=== PATIENT | female | born 1980 | race Caucasian/White ===

== ENCOUNTER → 2018-06-09 | Outpatient (CLI) | payer MEDICAID ==
[~2018-06-09] MED LIST: DEXA4TAB PO; GADOBUTROL 10 MMOL/10 ML PFS ONE; LEVE500T53 PO; LORA10TA75 PO; OMEP20CA9 PO; OXYC-302 PO
== END | disposition home or self-care (01) ==
LOC: CFH 10:28
PROVIDERS: ATTEND Psychiatry & Neurology Neurology
DX: G40.909 Epilepsy, unspecified, not intractable, without status epilepticus (principal)
CPT/HCPCS: 70553; A9585

== ENCOUNTER → 2018-08-18 | Outpatient (CLI) | payer MEDICAID | END | disposition home or self-care (01) | LOC: CFH 08:55 | PROVIDERS: ATTEND Nurse Practitioner Critical Care Medicine | DX: D33.0 Benign neoplasm of brain, supratentorial (principal); G93.89 Other specified disorders of brain | CPT/HCPCS: 70553; A9585 ==

== ENCOUNTER 2018-09-08 07:10 | Day surgery (SDC) | payer MEDICAID ==
[~2018-09-08 07:10] MED LIST changes: -GADOBUTROL 10 MMOL/10 ML PFS ONE
[2018-09-08] MEDS ORDERED: LIDOCAINE-MPF 1%, 5ML ONE ×2 (07:44)
[2018-09-08] MEDS ORDERED: SODIUM CHLORIDE 0.9% 1,000 ML IV SCH (08:00)
[2018-09-08] MEDS ORDERED: PLEASE ENTER HEIGHT AND WEIGHT MC SCH (08:30)
[2018-09-08 10:34] LABS: GLUCOSE, CSF 67 mg/dL (40-80); TOTAL PROTEIN,CSF 41 mg/dL (15-45)
== END 2018-09-08 13:15 | disposition home or self-care (01) ==
LOC: OUT 07:10
PROVIDERS: ATTEND Psychiatry & Neurology Neurology
DX: G40.909 Epilepsy, unspecified, not intractable, without status epilepticus (principal); I10 Essential (primary) hypertension; Z87.891 Personal history of nicotine dependence
CPT/HCPCS: 36415; 62270; 77003; 82040; 82042; 82784; 82945; 83873; 84157; 86645; 86695; 86696; 86762; 86777; 86778; 88108; 89051

== ENCOUNTER → 2020-08-02 | Outpatient (CLI) | payer MEDICAID ==
[~2020-08-02] MED LIST changes: +AMLO-150 PO; +ASCO500T8 PO; +ERGO500017 PO; +IRON18TA PO; +LAMO100T63 PO; -OXYC-302 PO; +OXYC1TAB14 PO
[2020-08-02 16:36] LABS: BASOPHILS % (AUTO) 1 % (0-1); EOSINOPHILS % (AUTO) 2 % (1-7); LYMPHOCYTES % (AUTO) 23 % (22-44); MEAN CORPUSCULAR HEMOGLOBIN 28.2 pg (27.0-34.8); MEAN CORPUSCULAR HGB CONC 32.7 g/dL (32.4-35.8); MEAN PLATELET VOLUME 8.5 fL (7.4-10.4); MONOCYTES % (AUTO) 8 % (2-9); NEUTROPHILS % (AUTO) 66 % (42-75); PLATELET COUNT 371 x10^3/uL (130-400); RED BLOOD COUNT 4.59 x10^6/uL (3.82-5.3); RED CELL DISTRIBUTION WIDTH 14.9 % (9.6-15.2)
[2020-08-02 16:46] LABS: ALANINE AMINOTRANSFERASE 29 U/L (12-78); ANION GAP 6 mmol/L (5-15); CALCIUM 9.6 mg/dL (8.5-10.1); CHLORIDE 105 mmol/L (98-107); CREATININE 0.66 mg/dL (0.55-1.02); MICROSCOPIC AUTO
[2020-08-02 16:48] LABS: MD NO
[2020-08-02 16:50] LABS: ALKALINE PHOSPHATASE 81 U/L (45-117); BILIRUBIN,TOTAL 0.5 mg/dL (0.2-1.0); TOTAL PROTEIN 8.1 g/dL (6.4-8.2)
== END | disposition home or self-care (01) ==
LOC: STAR 15:00
PROVIDERS: ATTEND Obstetrics & Gynecology
DX: Z01.818 Encounter for other preprocedural examination (principal); N93.8 Other specified abnormal uterine and vaginal bleeding; Z20.822 Contact with and (suspected) exposure to COVID-19
CPT/HCPCS: 80053; 81001; 84702; 85025; 87077; 87086; 87186; 87635

== ENCOUNTER 2020-08-08 05:21 | Day surgery (SDC) | payer MEDICAID ==
[~2020-08-08] VITALS: Ht 167.6 cm; Wt 85.0 kg
[2020-08-08 06:04] VITALS: BP 133/86
[2020-08-08] MEDS ORDERED: NITR100C6 PO (06:29)
[2020-08-08] MEDS ORDERED: LACTATED RINGERS 1,000 ML IV SCH (06:30)
[2020-08-08] MEDS ORDERED: CHLORHEXIDINE 15 ML UDC MM ONE (06:30)
[2020-08-08 06:32] LABS: HCG UR SG 1.022 (1.003-1.030)
[2020-08-08] MEDS ORDERED: MIDAZOLAM 1 MG/ML, 2ML ONE (06:45)
[2020-08-08] MEDS ORDERED: EPINEPHRINE 1 MG/ML, 1ML ONE (06:46)
[2020-08-08] MEDS ORDERED: FENTANYL PF 100 MCG/2ML ONE (06:46)
[2020-08-08] MEDS ORDERED: SILVER NITRATE STICK TP ONE (06:46)
[2020-08-08] MEDS ORDERED: BUPIVACAINE/PF 0.25% ONE (06:46)
[2020-08-08] MEDS ORDERED: HYDROmorphone 1 MG/ML, 1ML INJ IVPush PRN (07:00)
[2020-08-08] MEDS ORDERED: FENTANYL PF 100 MCG/2ML IV PRN (07:00)
[2020-08-08] MEDS ORDERED: HYDROcodone/APAP 7.5-325MG/15ML UDC PO PRN (07:00)
[2020-08-08] MEDS ORDERED: ONDANSETRON 2MG/ML, 2ML IVPush PRN (07:00)
[2020-08-08] MEDS ORDERED: PROMETHAZINE 25 MG/ML, 1ML IVPush PRN (07:00)
[2020-08-08] MEDS ORDERED: KETOROLAC 30 MG/1 ML IVPush PRN (07:00)
[2020-08-08] MEDS ORDERED: OXYcodone 5 MG/5 ML ORAL.SOL UDC PO PRN (07:00)
[2020-08-08] MEDS ORDERED: MEPERIDINE/PF 25MG/0.5ML IVPush PRN (07:00)
[2020-08-08] MEDS ORDERED: PROPOFOL 10 MG/ML, 20ML ONE (07:29)
[2020-08-08] MEDS ORDERED: LIDOCAINE-MPF 1%, 2ML ONE (07:29)
[2020-08-08] MEDS ORDERED: CEFAZOLIN 1,000 MG ONE (07:29)
[2020-08-08] MEDS ORDERED: KETOROLAC 30 MG/1 ML ONE (08:35)
== END 2020-08-08 10:25 | disposition home or self-care (01) ==
LOC: OUT 05:21
PROVIDERS: ATTEND Obstetrics & Gynecology
DX: N93.8 Other specified abnormal uterine and vaginal bleeding (principal); I10 Essential (primary) hypertension; G40.109 Localization-related (focal) (partial) symptomatic epilepsy and epileptic syndromes with simple partial seizures, not intractable, without status epilepticus; Z79.899 Other long term (current) drug therapy; Z98.51 Tubal ligation status
CPT/HCPCS: 36415; 58563; 81025; 86850; 86900; J0690; J1885; J2250; J2704; J3010; J7120; J0171